=== PATIENT | female | born 1995 | race Caucasian/White ===

== ENCOUNTER 2020-03-20 22:48 | Emergency (ER) | payer SELFPAY ==
[2020-03-20] MEDS ORDERED: Cephalexin 500 MG CAP ONE ×2 (23:24→23:45)
== END 2020-03-20 23:28 | disposition home or self-care (01) ==
LOC: MADERS 22:48
DX: S10.96XA Insect bite of unspecified part of neck, initial encounter (principal); W57.XXXA Bitten or stung by nonvenomous insect and other nonvenomous arthropods, initial encounter
CPT/HCPCS: 99282